=== PATIENT | female | born 1985 | race Caucasian/White ===

== ENCOUNTER 2017-01-30 02:34 | Emergency (ER) | payer OTHER, MEDICAID ==
[~2017-01-30] VITALS: Ht 167.6 cm; Wt 127.3 kg
[~2017-01-30 02:34] MED LIST: CLINDAMYCIN300 MG PO; LORTAB 5/500 501 TAB PO; MOTRIN 600600 MG/TAB PO; NO HOME MEDICATIONS; NORCO 325 MG-51 TAB PO; PERCOCET 325 MG1 TA2 PO; PIROXICAM; PRENATAL1 TA2; PRENATAL1 TA3 PO; PROXICAM; SENOKOT S 50 MG1 TAB PO; TOPROL XL50 MG PO; VICODIN 5/5001 UDTAB PO; ZITHROMAX 250M250 MG PO
[2017-01-30 02:42] VITALS: TEMP 97.9
[2017-01-30 03:03] LABS: ARTERIAL BLD GAS O2 SATURATION 94.1 % (92-100); ARTERIAL BLD GAS TCO2 CT 26.4; ARTERIAL BLOOD GAS BASE EXCESS 0.8 (-2-2); ARTERIAL BLOOD GAS HCO3 25.1 meq/L (22-26); ARTERIAL BLOOD GAS PHT 7.42 C (7.35-7.45); ARTERIAL BLOOD GAS pH 7.42 (7.35-7.45); OXYHEMOGLOBIN 93.2 %
[2017-01-30 03:04] LABS: ALLEN TEST YES; ALLENS TEST RESULT PASS; ATS? YES
[2017-01-30 03:24] LABS: ALLEN TEST YES; ALLENS TEST RESULT PASS; ATS? NO
[2017-01-30] MEDS ORDERED: PREDNISONE20 MG PO (03:55)
[2017-01-30] MEDS ORDERED: MAGIC MOUTH PO (04:03)
[2017-01-30 04:12] VITALS: BP 138/75; PULSE 102
== END 2017-01-30 04:15 | disposition home or self-care (01) ==
LOC: COL.ER 02:34
PROVIDERS: Emergency Medicine
DX: T59.811A Toxic effect of smoke, accidental (unintentional), initial encounter (principal); J70.5 Respiratory conditions due to smoke inhalation; Y92.009 Unspecified place in unspecified non-institutional (private) residence as the place of occurrence of the external cause
CPT/HCPCS: J2930; J7030

== ENCOUNTER 2017-02-27 11:37 | Emergency (ER) | payer OTHER, MEDICAID ==
[~2017-02-27] VITALS: Ht 167.6 cm; Wt 122.7 kg
[~2017-02-27 11:37] MED LIST changes: +MAGIC MOUTH PO; +PREDNISONE20 MG PO
[2017-02-27 11:39] VITALS: BP 164/75; PULSE 77; TEMP 97.5
[2017-02-27] MEDS ORDERED: FLOVENT 110MCG7.9 GM IH (11:42)
[2017-02-27] MEDS ORDERED: PROAIR HFA0.09 MG/AC IH (11:42)
[2017-02-27] MEDS ORDERED: IPRATROPIUM BROM3 M1 IH (11:43)
[2017-02-27] MEDS ORDERED: NORCO 325 MG-51 TAB PO (11:59)
[2017-02-27] MEDS ORDERED: CLEOCIN HCL300 MG PO (11:59)
== END 2017-02-27 12:12 | disposition home or self-care (01) ==
LOC: COL.ER 11:37
DX: K08.89 Other specified disorders of teeth and supporting structures (principal); Z88.0 Allergy status to penicillin

== ENCOUNTER → 2017-09-21 | Outpatient (CLI) | payer MEDICAID, BC ==
[~2017-09-21] MED LIST changes: +CLEOCIN HCL300 MG PO; +FLOVENT 110MCG7.9 GM IH; +IPRATROPIUM BROM3 M1 IH; +PROAIR HFA0.09 MG/AC IH
== END ==
LOC: SUN.DIA 14:54
DX: O24.419 Gestational diabetes mellitus in pregnancy, unspecified control (principal); Z3A.30 30 weeks gestation of pregnancy; Z71.3 Dietary counseling and surveillance

== ENCOUNTER → 2017-09-28 | Outpatient (CLI) | payer MEDICAID, BC | LOC: SUN.DIA 09:55 | DX: O24.419 Gestational diabetes mellitus in pregnancy, unspecified control (principal); Z3A.31 31 weeks gestation of pregnancy; Z71.3 Dietary counseling and surveillance | CPT/HCPCS: G0108 ==

== ENCOUNTER 2017-09-30 05:47 | Inpatient (IN) | payer BC ==
[~2017-09-30] VITALS: Ht 167.6 cm; Wt 131.4 kg
[2017-11-18] MEDS ORDERED: PRENATAL1 TA7 PO (17:23)
[2017-11-18] MEDS ORDERED: NOVOLOG 100U100 U/M1 SQ (17:24)
[2017-11-18] MEDS ORDERED: LEVEMIR100 U/ML SQ (17:24)
[2017-11-25] VITALS (20 sets, daily range): BP systolic 104–138; BP diastolic 51–75; PULSE 68–100; TEMP 97.5–98.5
[2017-11-25 07:00] LABS: BASO # 0.1 (0.0-0.2); BASO % 0.5 % (0.0-2.0); EOS # 0.1 (0.0-0.7); EOS % 1.1 % (0-4.0); GRAN # 8.8 (1.4-6.5); GRAN % 73.5 % (42.2-75.2); HEMOGLOBIN 13.2 g/dl (12.5-16.0); LYMPH # 2.2 (1.2-3.4); LYMPH % 18.2 % (20.0-51.0); MEAN CELL VOLUME 88 fl (80.0-100.0); MEAN CORPUSCULAR HEMOGLOBIN 30 pg (27.0-31.0); MEAN CORPUSCULAR HGB CONC 34 g/dl (33.0-37.0); MEAN PLATELET VOLUME 12.1 fl (7.4-10.4); MONO # 0.7 (0.1-0.6); MONO % 6.2 % (1.7-9.3); PLATELET COUNT 232 K/mm3 (130-400); RED BLOOD COUNT 4.44 M/mm3 (4.10-5.30); REDCELL DISTRIBUTION WIDTH-CV 14.1 % (11.5-14.5)
[2017-11-26 01:00] VITALS: BP 120/68; PULSE 70; TEMP 98.5
[2017-11-26 08:24] VITALS: BP 119/56; PULSE 80; TEMP 97.9
[2017-11-26 17:09] VITALS: BP 117/57; PULSE 81; TEMP 98
[2017-11-26 20:00] VITALS: BP 124/61; PULSE 85; TEMP 98.1
[2017-11-27 06:38] VITALS: BP 111/72; PULSE 81; TEMP 97.6
[2017-11-27] MEDS ORDERED: MOTRIN 800800 MG/TAB PO (08:46)
[2017-11-27] MEDS ORDERED: PERCOCET 325 MG1 TA2 PO (08:46)
== END 2017-11-27 12:00 | disposition home or self-care (01) | DRG 766 ==
LOC: LDRO 05:47 → EDSTATUS 06:46 → LDRO 13:29 → OB 11-25 05:22
PROVIDERS: Obstetrics & Gynecology
PROC: 10D00Z1 Extraction of Products of Conception, Low, Open Approach (ICD-10-PCS; principal; 2017-11-25)
DX: O34.211 Maternal care for low transverse scar from previous cesarean delivery (principal); N85.8 Other specified noninflammatory disorders of uterus; O24.424 Gestational diabetes mellitus in childbirth, insulin controlled; O99.824 Streptococcus B carrier state complicating childbirth; Z3A.39 39 weeks gestation of pregnancy; Z88.0 Allergy status to penicillin; Z37.0 Single live birth
CPT/HCPCS: J0690; J1580; J1885; J2270; J2370; J2405; J2590; J2765; J7120

== ENCOUNTER → 2017-10-04 | Outpatient (CLI) | payer BC, MEDICAID | LOC: SUN.DIA 10:18 | DX: O24.414 Gestational diabetes mellitus in pregnancy, insulin controlled (principal); Z3A.32 32 weeks gestation of pregnancy; Z71.3 Dietary counseling and surveillance | CPT/HCPCS: G0108 ==

== ENCOUNTER → 2017-10-10 | Outpatient (CLI) | payer BC, MEDICAID | LOC: SUN.DIA 08:56 | DX: O24.414 Gestational diabetes mellitus in pregnancy, insulin controlled (principal); Z3A.33 33 weeks gestation of pregnancy; Z71.3 Dietary counseling and surveillance | CPT/HCPCS: G0108 ==

== ENCOUNTER → 2017-10-20 | Outpatient (CLI) | payer BC, MEDICAID | LOC: SUN.DIA 10:15 | DX: O24.414 Gestational diabetes mellitus in pregnancy, insulin controlled (principal); Z3A.35 35 weeks gestation of pregnancy; Z71.3 Dietary counseling and surveillance | CPT/HCPCS: G0108 ==

== ENCOUNTER → 2017-11-03 | Outpatient (CLI) | payer BC, MEDICAID | LOC: SUN.DIA 10:59 | DX: O24.414 Gestational diabetes mellitus in pregnancy, insulin controlled (principal); Z3A.37 37 weeks gestation of pregnancy; Z71.3 Dietary counseling and surveillance | CPT/HCPCS: G0108 ==

== ENCOUNTER 2017-11-18 17:11 | Outpatient (CLI) | payer BC, MEDICAID ==
[~2017-11-18] VITALS: Ht 167.6 cm; Wt 130.0 kg
[2017-11-18 17:14] VITALS: BP 134/64; PULSE 87; TEMP 98.3
[2017-11-18] MEDS ORDERED: PRENATAL1 TA7 PO (17:23)
[2017-11-18] MEDS ORDERED: NOVOLOG 100U100 U/M1 SQ (17:24)
[2017-11-18] MEDS ORDERED: LEVEMIR100 U/ML SQ (17:24)
== END 2017-11-18 17:30 | disposition home or self-care (01) ==
LOC: LDRO 17:11
DX: O36.8130 Decreased fetal movements, third trimester, not applicable or unspecified (principal); Z3A.38 38 weeks gestation of pregnancy

== ENCOUNTER 2019-07-18 15:30 | Outpatient (RCR) | payer BC, MEDICAID ==
[~2019-07-18 15:30] MED LIST changes: +LEVEMIR100 U/ML SQ; +MOTRIN 800800 MG/TAB PO; +NOVOLOG 100U100 U/M1 SQ; +PRENATAL1 TA7 PO
== END 2019-08-26 | disposition still patient (30) ==
LOC: MKS.ESL.PT
DX: M76.71 Peroneal tendinitis, right leg (principal)
CPT/HCPCS: G0283-GP

== ENCOUNTER → 2019-10-24 | Outpatient (CLI) | payer BC, MEDICAID | LOC: ZCOL.LAB 11:44 | DX: Z01.812 Encounter for preprocedural laboratory examination (principal); Z86.14 Personal history of Methicillin resistant Staphylococcus aureus infection ==

== ENCOUNTER 2019-11-29 17:37 | Emergency (ER) | payer BC, MEDICAID ==
[~2019-11-29] VITALS: Ht 167.6 cm; Wt 127.3 kg
[2019-11-29 19:10] LABS: BASO # 0.1 (0.0-0.2); BASO % 0.9 % (0.0-2.0); EOS # 0.3 (0.0-0.7); EOS % 3.2 % (0-4.0); GRAN # 5.2 (1.4-6.5); GRAN % 54.8 % (42.2-75.2); HEMATOCRIT 38.8 % (37.0-47.0); HEMOGLOBIN 12.7 g/dl (12.5-16.0); LYMPH # 3.2 (1.2-3.4); LYMPH % 33.8 % (20.0-51.0); MEAN CELL VOLUME 87 fl (80.0-100.0); MEAN CORPUSCULAR HEMOGLOBIN 28 pg (27.0-31.0); MEAN CORPUSCULAR HGB CONC 33 g/dl (33.0-37.0); MEAN PLATELET VOLUME 10.6 fl (7.4-10.4); MONO # 0.7 (0.1-0.6); MONO % 6.9 % (1.7-9.3); PLATELET COUNT 244 K/mm3 (130-400); RED BLOOD COUNT 4.47 M/mm3 (4.10-5.30); REDCELL DISTRIBUTION WIDTH-CV 13.2 % (11.5-14.5)
[2019-11-29 19:20] LABS: ALBUMIN 3.8 gm/dL (3.5-5.0); BILIRUBIN,TOTAL 0.3 mg/dL (0.0-1.0); C-REACTIVE PROTEIN 2.3 mg/dL (0.0-0.9); CALCIUM 8.8 mg/dL (8.4-10.2); CREATININE, serum 0.55 (0.52-1.25); POTASSIUM 4.2 mmol/L (3.4-5.0)
[2019-11-29 19:40] LABS: ERYTHROCYTE SEDIMENTATION RATE 22 mm/hr (0-20)
[2019-11-29] MEDS ORDERED: CEPHALEXIN500 M1 PO (19:55)
[2019-11-29 20:15] VITALS: BP 110/81; PULSE 82; TEMP 98.6
== END 2019-11-29 20:15 | disposition home or self-care (01) ==
LOC: COL.ER 17:37
PROVIDERS: Emergency Medicine
DX: M25.561 Pain in right knee (principal); Z88.0 Allergy status to penicillin; Z87.39 Personal history of other diseases of the musculoskeletal system and connective tissue
CPT/HCPCS: J1885; J7030

== ENCOUNTER 2019-12-22 23:18 | Emergency (ER) | payer BC, MEDICAID ==
[~2019-12-22] VITALS: Ht 167.6 cm; Wt 134.1 kg
[~2019-12-22 23:18] MED LIST changes: +CEPHALEXIN500 M1 PO
[2019-12-23 00:19] VITALS: BP 142/84
[2019-12-23 01:17] VITALS: TEMP 97.9
[2019-12-23] MEDS ORDERED: OMNICEF 300MG300 MG PO (01:30)
[2019-12-23 01:41] VITALS: PULSE 109
[2019-12-23] MEDS ORDERED: NORCO 325 MG-51 TAB PO (08:01)
== END 2019-12-23 01:41 | disposition home or self-care (01) ==
LOC: COL.ER 23:18
DX: H66.91 Otitis media, unspecified, right ear (principal); J40 Bronchitis, not specified as acute or chronic; I10 Essential (primary) hypertension; Z88.0 Allergy status to penicillin; Z88.2 Allergy status to sulfonamides

== ENCOUNTER 2019-12-23 07:26 | Emergency (ER) | payer BC, MEDICAID ==
[~2019-12-23] VITALS: Ht 167.6 cm; Wt 133.8 kg
[~2019-12-23 07:26] MED LIST changes: +OMNICEF 300MG300 MG PO
[2019-12-23 07:34] VITALS: BP 148/92; TEMP 98.4
[2019-12-23] MEDS ORDERED: NORCO 325 MG-51 TAB PO (08:01)
[2019-12-23 08:25] VITALS: PULSE 86
== END 2019-12-23 08:25 | disposition home or self-care (01) ==
LOC: COL.ER 07:26
DX: H66.91 Otitis media, unspecified, right ear (principal); H72.91 Unspecified perforation of tympanic membrane, right ear

== ENCOUNTER → 2019-12-27 | Outpatient (CLI) | payer BC, MEDICAID | LOC: ZCOL.LAB 18:20 | DX: H70.001 Acute mastoiditis without complications, right ear (principal) ==

== ENCOUNTER 2024-06-23 19:11 | Emergency (ER) | payer BC, MEDICAID ==
[~2024-06-23] VITALS: Ht 167.6 cm; Wt 127.3 kg
[~2024-06-23 19:11] MED LIST changes: +GLUCOPHAGE500 MG/TAB PO
[2024-06-23 19:18] VITALS: TEMP 98.1
[2024-06-23 20:13] VITALS: BP 130/86; PULSE 64
== END 2024-06-23 20:17 | disposition home or self-care (01) ==
LOC: COL.ER 19:11
DX: S63.610A Unspecified sprain of right index finger, initial encounter (principal); Z91.040 Latex allergy status; W01.0XXA Fall on same level from slipping, tripping and stumbling without subsequent striking against object, initial encounter